=== PATIENT | female | born 1990 | race Caucasian/White ===

== ENCOUNTER 2017-10-15 13:18 | Inpatient (IN) | payer OTHER, MEDICAID ==
[2017-10-15] MEDS ORDERED: Ondansetron 4 MG/2 ML SDV IVPUSH PRN ×2 (14:57→16:46)
[2017-10-15] MEDS ORDERED: Nalbuphine 20 MG/1 ML Amp IVPUSH PRN (14:57)
[2017-10-15] MEDS ORDERED: Aluminum Hydroxide/Magnesium Hydroxide/Simethicone Susp 30 ML Cup PO PRN (14:57)
[2017-10-15] MEDS ORDERED: Oxytocin/Lactated Ringers 10 UNIT/1,000 ML BAG IV SCH (15:00)
[2017-10-15] MEDS ORDERED: Ampicillin 2 GM in Sodium Chloride 0.9% 100 ML IV ONE (15:30)
[2017-10-15] MEDS: Lactated Ringers 1,000 ML IV SCH ×3 (15:39→18:00)
[2017-10-15] MEDS ORDERED: diphenhydrAMINE 50 MG/ML SDV IVPUSH PRN (16:46)
[2017-10-15] MEDS ORDERED: fentaNYL 100 MCG/2 ML SDV EPIDUR PRN (16:46)
[2017-10-15] MEDS ORDERED: ePHEDrine 50 MG/ML SDV IVPUSH PRN (16:46)
[2017-10-15] MEDS ORDERED: Bupivacaine/fentaNYL/NS 100 ML Bag EPIDUR SCH (17:00)
--- NOTE | 2017-10-15 17:31 | PCM.PREANE ---
Preanesthetic Assessment - Procedure Proposed Procedure: MIRANDA - Anesthesia/Transfusion/Family Hx Anesthesia History: No Prior Anesthesia Family History of Anesthesia Reaction: No Transfusion History: No Prior Transfusion(s) Intubation History: Unknown - Review of Systems General: No Symptoms Pulmonary: No Symptoms Cardiovascular: No Symptoms Gastrointestinal: No Symptoms Neurological: No Symptoms Other: Reports: None - Physical Assessment NPO Status Date: 10/14/17 NPO Status Time: 15:00 O2 Sat by Pulse Oximetry: 97 Respiratory Rate: 17 Vital Signs: Last Vital Signs Temp 36.6 C 10/15/17 14:01 Pulse 79 10/15/17 14:01 Resp 17 10/15/17 14:01 BP 140/83 10/15/17 14:01 Pulse Ox 97 10/15/17 14:01 Height: 1.78 m Weight: 108.545 kg ASA Class: 2 Mental Status: Alert & Oriented x3 Airway Class: Mallampati = 1 Dentition: Reports: Normal Dentition Thyro-Mental Finger Breadths: 3 Mouth Opening Finger Breadths: 3 ROM/Head Extension: Full Lungs: Clear to Auscultation, Normal Respiratory Effort Cardiovascular: Regular Rate, Regular Rhythm - Lab Values: Laboratory Last Values WBC 10.56 K/mm3 (3.98-10.04) H 10/15/17 14:32 RBC 4.34 M/mm3 (3.98-5.22) 10/15/17 14:32 Hgb 12.4 gm/L (11.2-15.7) 10/15/17 14:32 Hct 36.5 % (34.1-44.9) 10/15/17 14:32 MCV 84.1 fl (79.4-94.8) 10/15/17 14:32 MCH 28.6 pg (25.6-32.2) 10/15/17 14:32 MCHC 34.0 g/dl (32.2-35.5) 10/15/17 14:32 RDW Std Deviation 40.8 fL (36.4-46.3) 10/15/17 14:32 Plt Count 218 K/mm3 (182-369) 10/15/17 14:32 MPV 11.8 fl (9.4-12.3) 10/15/17 14:32 Neut % (Auto) 75.1 % (34.0-71.1) H 10/15/17 14:32 Lymph % (Auto) 16.3 % (19.3-51.7) L 10/15/17 14:32 [place] % (Auto) 7.5 % (4.7-12.5) 10/15/17 14:32 Eos % (Auto) 0.3 (0.7-5.8) L 10/15/17 14:32 Baso % (Auto) 0.2 % (0.1-1.2) 10/15/17 14:32 Neut # (Auto) 7.94 K/mm3 (1.56-6.13) H 10/15/17 14:32 Lymph # (Auto) 1.72 K/mm3 (1.18-3.74) 10/15/17 14:32 [place] # (Auto) 0.79 K/mm3 (0.24-0.36) H 10/15/17 14:32 Eos # (Auto) 0.03 K/mm3 (0.04-0.36) L 10/15/17 14:32 Baso # (Auto) 0.02 K/mm3 (0.01-0.08) 10/15/17 14:32 Membrane Rupture Positive H 10/15/17 13:53 Blood Type O POSITIVE 10/15/17 14:32 Gel Antibody Screen Negative 10/15/17 14:32 - Allergies Allergies/Adverse Reactions: Allergies Allergy/AdvReac Type Severity Reaction Status Date / Time No Known Allergies Allergy Verified 10/15/17 14:56 - Blood Blood Available: No Product(s) Available: None - Anesthesia Plan Pre-Op Medication Ordered: None - Acknowledgements Anesthesia Type Planned: Epidural Pt an Appropriate Candidate for the Planned Anesthesia: Yes Alternatives and Risks of Anesthesia Discussed w Pt/Guardian: Yes Pt/Guardian Understands and Agrees with Anesthesia Plan: Yes PreAnesthesia Questionnaire CREATIVE LEAD History: Reports: Other (See Below) Other OB/BYN History: abnormal pap and colposcopy 2006 - Past Surgical History HEENT Surgical History: Reports: Oral Surgery Other HEENT Surgeries/Procedures: wisdom teeth 2007 - SUBSTANCE USE Smoking Status *Q: Never Smoker Recreational Drug Use History: No - HOME MEDS Home Medications: Home Meds Vit W-Ca,Fe,FA(<1 mg) [ Vitamins] 1 tab PO DAILY 10/15/17 [ History] - CURRENT (IN HOUSE) MEDS Current Meds: Current Medications Al Hydroxide/Mg Hydroxide (Mag-Al Plus) 30 ml PO Q8H PRN PRN Reason: Heartburn Diphenhydramine HCl (Benadryl) 25 mg IVPUSH Q6H PRN PRN Reason: Pruritis Ephedrine Sulfate (Ephedrine Sulfate) 5 mg IVPUSH ASDIRECTED PRN PRN Reason: Hypotension Fentanyl (Sublimaze) 100 mcg EPIDUR Q3H PRN PRN Reason: Pain Last Admin: 10/15/17 17:15 Dose: 100 mcg Fentanyl/Bupivacaine HCl (Fentanyl/Bupivacaine/Ns 2 Mcg-0.125% 100 Ml) 100 ml EPIDUR ASDIRECTED HARRIS Last Admin: 10/15/17 17:15 Dose: 100 ml Ampicillin Sodium 1 gm/ Sodium (Chloride) 100 mls @ 200 mls/hr IV Q4H HARRIS Lactated Ringer's (Ringers, Lactated) 1,000 mls @ 100 mls/hr IV ASDIRECTED HARRIS Last Admin: 10/15/17 15:39 Dose: 100 mls/hr Oxytocin/Lactated Ringer's (Pitocin In Lr 10 Units/1,000 Ml) 10 unit in 1,000 mls @ 12 mls/hr IV TITRATE HARRIS; 2 MUNITS/MIN PRN Reason: Protocol Oxytocin 20 unit/ Lactated (Ringer's) 1,002 mls @ 500 mls/hr IV ASDIRECTED [facility] Nalbuphine HCl (Nubain) 10 mg IVPUSH Q2H PRN PRN Reason: Pain (moderate 4-6) Ondansetron HCl (Zofran) 4 mg IVPUSH Q4H PRN PRN Reason: Nausea/Vomiting Ondansetron HCl (Zofran) 4 mg IVPUSH ONETIME PRN PRN Reason: Nausea/Vomiting Discontinued Medications Ampicillin Sodium 2 gm/ Sodium (Chloride) 100 mls @ 200 mls/hr IV ONETIME ONE Stop: 10/15/17 15:59 Last Admin: 10/15/17 15:34 Dose: 200 mls/hr
--- NOTE | 2017-10-15 18:43 | PCM.LDHP ---
L&D History of Present Illness - General Date of Service: 10/15/17 Admit Problem/Dx: Patient Status Order with Admit Dx/Problem 10/15/17 15:01 Patient Status [ADT] Routine Admission Diagnosis/Problem Admission Diagnosis/Problem Normal labor Source of Information: Patient History Limitations: Reports: No Limitations - History of Present Illness Introduction:: 27-year-old JL 10/15/17 estimated gestational age 40 weeks gestation. Presented to labor and delivery with contractions history of leaking of fluid since sometime this morning patient not sure when. Amniotomy performed just now cervix 5 cm, 100% effaced, soft, mid position Vertex -1-2 lightly meconium- stained and blood-tinged from bloody show. B strep positive patient has been started on antibiotics upon arrival to labor and delivery. Patient oh positive, antibody screen negative, hemoglobin hematocrit initially 13.2 38.4 platelets 290,000 rubella immune serology nonreactive hepatitis B surface antigen and HIV negative. Urine culture no growth after 2 days. GC and chlamydia probe negative. On 07/11/17 hemoglobin hematocrit 11.4 and 34.2 platelets 218,000 Timing/Duration: Reports: hour(s): Location, : Reports: Abdomen, Lower back Quality: Reports: Ache, Dull, Pressure Pain Score: 7 Improves with: Reports: None Worsens with: Reports: None Associated Symptoms: Reports: N - Related Data Allergies/Adverse Reactions: Allergies Allergy/AdvReac Type Severity Reaction Status Date / Time No Known Allergies Allergy Verified 10/15/17 14:56 Home Medications: Home Meds Vit W-Ca,Fe,FA(<1 mg) [ Vitamins] 1 tab PO DAILY 10/15/17 [ History] Past Medical History [employer] History: Reports: Other (See Below) Other OB/BYN History: abnormal pap and colposcopy 2006 - Past Surgical History HEENT Surgical History: Reports: Oral Surgery Other HEENT Surgeries/Procedures: wisdom teeth 2007 Social & Family History - Family History Family Medical History: Noncontributory - Tobacco Use Smoking Status *Q: Never Smoker - Caffeine Use Caffeine Use: Reports: Coffee - Recreational Drug Use Recreational Drug Use: No H&P Review of Systems - Review of Systems: Review Of Systems: See Below General: Reports: No Symptoms HEENT: Reports: No Symptoms Pulmonary: Reports: No Symptoms Cardiovascular: Reports: No Symptoms Gastrointestinal: Reports: No Symptoms Genitourinary: Reports: No Symptoms Musculoskeletal: Reports: No Symptoms Skin: Reports: No Symptoms Psychiatric: Reports: No Symptoms Neurological: Reports: No Symptoms Hematologic/Lymphatic: Reports: No Symptoms Immunologic: Reports: No Symptoms L&D Exam - Exam Exam: See Below - Vital Signs Vital Signs: Last Vital Signs Temp 97.9 F 10/15/17 14:01 Pulse 79 10/15/17 14:01 Resp 17 10/15/17 17:31 BP 140/83 10/15/17 14:01 Pulse Ox 97 10/15/17 17:31 Weight: 239 lb 4.8 oz - OB Specific Fundal Height In cm: 39 Contraction Duration (sec): 60 Contraction Frequency (min): 2 Contraction Intensity: Moderate to Strong Movement: Active Heart Tones: Present Heart Tones per Min: 135 Heart Rate (FHR) Variability: Moderate (6-25 bmp) Presentation: Vertex - Mccullough Score Mccullough Score Cervix Position: Midposition Mccullough Score Consistency: Soft Mccullough Score Effacement: >80% Mccullough Score Dilation: > 5 cm Mccullough Score 's Station: -1 ,0 Mccullough Score Total: 11 - Exam General: Alert, Oriented HEENT: Conjunctiva Clear, Mucosa Moist & [place], PERRLA Neck: Supple, Trachea Midline Lungs: Clear to Auscultation, Normal Respiratory Effort Cardiovascular: Regular Rate, Regular Rhythm GI/Abdominal Exam: Normal Bowel Sounds, Soft, Non-Tender Genitourinary: Normal external exam, Normal bimanual exam, Normal speculum exam Back Exam: Normal Inspection, Full Range of Motion Extremities: Normal Inspection, Normal Range of Motion, Non-Tender, No Pedal Edema, Normal Capillary Refill Skin: Warm, Dry, Intact Neurological: Reflexes Equal Bilateral Psychiatric: Alert, Normal Affect, Normal Mood - Patient Data Lab Results Last 24 hrs: Laboratory Results - last 24 hr 10/15/17 10/15/17 10/15/17 Range/Units 13:53 14:32 14:32 WBC 10.56 H (3.98-10.04) K/mm3 RBC 4.34 (3.98-5.22) M/mm3 Hgb 12.4 (11.2-15.7) gm/L Hct 36.5 (34.1-44.9) % MCV 84.1 (79.4-94.8) fl MCH 28.6 (25.6-32.2) pg MCHC 34.0 (32.2-35.5) g/dl RDW Std Deviation 40.8 (36.4-46.3) fL Plt Count 218 (182-369) K/mm3 MPV 11.8 (9.4-12.3) fl Neut % (Auto) 75.1 H (34.0-71.1) % Lymph % (Auto) 16.3 L (19.3-51.7) % [place] % (Auto) 7.5 (4.7-12.5) % Eos % (Auto) 0.3 L (0.7-5.8) Baso % (Auto) 0.2 (0.1-1.2) % Neut # (Auto) 7.94 H (1.56-6.13) K/mm3 Lymph # (Auto) 1.72 (1.18-3.74) K/mm3 [place] # (Auto) 0.79 H (0.24-0.36) K/mm3 Eos # (Auto) 0.03 L (0.04-0.36) K/mm3 Baso # (Auto) 0.02 (0.01-0.08) K/mm3 Membrane Rupture Positive H Blood Type O POSITIVE Gel Antibody Screen Negative Result Diagrams: 10/15/17 14:32 - Problem List (1) 40 weeks gestation of SNOMED Code(s): 10139378 ICD Code: Z3A.40 - 40 WEEKS GESTATION OF Status: Acute Current Visit: Yes (2) GBS carrier SNOMED Code(s): 9489391802655 ICD Code: Z22.330 - CARRIER OF GROUP B STREPTOCOCCUS Status: Acute Current Visit: Yes Problem List Initiated/Reviewed/Updated: No Orders Last 24hrs: Active Orders 24 hr Category Date Time Status Patient Status [ADT] Routine ADT 10/15/17 15:01 Active Activity as Tolerated [RC] PFP Care 10/15/17 14:58 Active Communication Order [RC] ASDIRECTED Care 10/15/17 14:58 Active Notify Provider [RC] PFP Care 10/15/17 14:58 Active Notify Provider [RC] PRN Care 10/15/17 14:58 Active Regular Diet [DIET] Diet 10/15/17 Breakfast Active Alum Hydrox/Mag Hydrox/Simeth [Mag-Al Plus] Med 10/15/17 14:57 Active 30 ml PO Q8H PRN Ampicillin 1 gm Med 10/15/17 19:30 Active Sodium Chloride 0.9% [Normal Saline] 100 ml IV Q4H Bupivacaine/fentaNYL/NS [fentaNYL/Bupivacaine/NS 2 MCG- Med 10/15/17 17:00 Active 0.125% 100 ML] 100 ml EPIDUR ASDIRECTED Lactated Ringers [Ringers, Lactated] 1,000 ml Med 10/15/17 15:00 Active IV ASDIRECTED Nalbuphine [Nubain] Med 10/15/17 14:57 Active 10 mg IVPUSH Q2H PRN Ondansetron [Zofran] Med 10/15/17 16:46 Active 4 mg IVPUSH ONETIME PRN Ondansetron [Zofran] Med 10/15/17 14:57 Active 4 mg IVPUSH Q4H PRN Oxytocin [Pitocin] 20 unit Med 10/15/17 15:15 Active Lactated Ringers [Ringers, Lactated] 1,000 ml IV ASDIRECTED Oxytocin/Lactated Ringers [Pitocin in LR 10 Units/1,000 Med 10/15/17 15:00 Active ML] 10 unit in 1,000 ml IV TITRATE diphenhydrAMINE [Benadryl] Med 10/15/17 16:46 Active 25 mg IVPUSH Q6H PRN ePHEDrine [ePHEDrine Sulfate] Med 10/15/17 16:46 Active 5 mg IVPUSH ASDIRECTED PRN fentaNYL [Sublimaze] Med 10/15/17 16:46 Active 100 mcg EPIDUR Q3H PRN Electronic Heart Tones Ext w TOCO [WOMSER] Oth 10/15/17 14:58 Ordered Routine Electronic Heart Tones Internal [WOMSER] Per Unit Oth 10/15/17 14:58 Ordered Routine Peripheral IV Insertion Adult [OM.PC] Routine Oth 10/15/17 14:58 Ordered Resuscitation Status Routine Resus Stat 10/15/17 14:57 Ordered Medication Orders Al Hydroxide/Mg Hydroxide (Mag-Al Plus) 30 ml PO Q8H PRN PRN Reason: Heartburn Diphenhydramine HCl (Benadryl) 25 mg IVPUSH Q6H PRN PRN Reason: Pruritis Ephedrine Sulfate (Ephedrine Sulfate) 5 mg IVPUSH ASDIRECTED PRN PRN Reason: Hypotension Fentanyl (Sublimaze) 100 mcg EPIDUR Q3H PRN PRN Reason: Pain Last Admin: 10/15/17 17:15 Dose: 100 mcg Fentanyl/Bupivacaine HCl (Fentanyl/Bupivacaine/Ns 2 Mcg-0.125% 100 Ml) 100 ml EPIDUR ASDIRECTED HARRIS Last Admin: 10/15/17 17:15 Dose: 100 ml Ampicillin Sodium 1 gm/ Sodium (Chloride) 100 mls @ 200 mls/hr IV Q4H HARRIS Lactated Ringer's (Ringers, Lactated) 1,000 mls @ 100 mls/hr IV ASDIRECTED HARRIS Last Admin: 10/15/17 18:00 Dose: 100 mls/hr Infusion: 10/15/17 18:00 Dose: 100 mls/hr Admin: 10/15/17 17:00 Dose: 100 mls/hr Infusion: 10/15/17 17:00 Dose: 100 mls/hr Admin: 10/15/17 15:39 Dose: 100 mls/hr Oxytocin/Lactated Ringer's (Pitocin In Lr 10 Units/1,000 Ml) 10 unit in 1,000 mls @ 12 mls/hr IV TITRATE HARRIS; 2 MUNITS/MIN PRN Reason: Protocol Oxytocin 20 unit/ Lactated (Ringer's) 1,002 mls @ 500 mls/hr IV ASDIRECTED [facility] Nalbuphine HCl (Nubain) 10 mg IVPUSH Q2H PRN PRN Reason: Pain (moderate 4-6) Ondansetron HCl (Zofran) 4 mg IVPUSH Q4H PRN PRN Reason: Nausea/Vomiting Ondansetron HCl (Zofran) 4 mg IVPUSH ONETIME PRN PRN Reason: Nausea/Vomiting Assessment/Plan Comment:: Plan delivery.
[2017-10-15] MEDS: Ampicillin 1 GM in Sodium Chloride 0.9% 100 ML IV SCH ×2 (19:25→23:34)
[2017-10-15] MEDS ORDERED: Oxytocin 10 Units/1 ML SDV ONE (22:18)
[2017-10-15] MEDS ORDERED: Bupivacaine 0.25% 10 ML SDV ONE (22:20)
[2017-10-16] MEDS ORDERED: Lidocaine 1% 50 ML MDV ONE (00:09)
--- NOTE | 2017-10-16 00:29 | PCM.DEL ---
L & D Note - General Info Date of Service: 10/16/17 Mother's Due Date: 10/15/17 - Delivery Note Labor: Spontaneous, Augmented by ARM (Amniotomy of for bag after arrival on labor and delivery previous spontaneous rupture membranes earlier in the day.) Delivery Outcome: Livebirth (Male liveborn at 0004 hours on Tuesday10/16/17 3840 g/8 pounds 7.5 ounces Apgars 8/9 LUIS nuchal cord 1) Delivery Method: Spontaneous Vaginal Delivery-Single Delivery Mode: Spontaneous Presentation: Right Occiput Anterior (LUIS) Nuchal Cord: Present (Times one reduced over shoulders), Reduced Prep: Povidone-Iodine (Betadine Anesthesia Type: Local, Epidural Anesthetic: Lidocaine (Xylocaine) 1% Plain Local Anesthetic Volume: 5cc Amniotic Fluid Description: Clear Episiotomy Type: None Laceration: 1st Degree ("V" shaped left side of the midline) Suture type: Other (Monocryl times one) Suture size: 3-0 Placenta: Intact, Spontaneous (0007 hours intact eccentric cord insertion discarded Matthew) Cord: 3 Vessels Estimated Blood Loss: 250 Resuscitation Needed: No [place]: Suctioned, Bulb Syringe, Cathether, Stimulated, Warmed, [place] Used, Warmer Used Provider: León Chicas Score 1 min: 8 Score 5 min: 9 - Patient Data Vitals - Most Recent: Last Vital Signs Temp 97.9 F 10/15/17 14:01 Pulse 79 10/15/17 14:01 Resp 17 10/15/17 17:31 BP 140/83 10/15/17 14:01 Pulse Ox 97 10/15/17 17:31 Weight - Most Recent: 239 lb 4.8 oz I&O - Last 24 Hours: Intake & Output 10/15/17 10/15/17 10/16/17 14:59 22:59 07:59 Intake Total 0 Balance 0 Lab Results Last 24 Hours: Laboratory Results - last 24 hr 10/15/17 10/15/17 10/15/17 Range/Units 13:53 14:32 14:32 WBC 10.56 H (3.98-10.04) K/mm3 RBC 4.34 (3.98-5.22) M/mm3 Hgb 12.4 (11.2-15.7) gm/L Hct 36.5 (34.1-44.9) % MCV 84.1 (79.4-94.8) fl MCH 28.6 (25.6-32.2) pg MCHC 34.0 (32.2-35.5) g/dl RDW Std Deviation 40.8 (36.4-46.3) fL Plt Count 218 (182-369) K/mm3 MPV 11.8 (9.4-12.3) fl Neut % (Auto) 75.1 H (34.0-71.1) % Lymph % (Auto) 16.3 L (19.3-51.7) % [place] % (Auto) 7.5 (4.7-12.5) % Eos % (Auto) 0.3 L (0.7-5.8) Baso % (Auto) 0.2 (0.1-1.2) % Neut # (Auto) 7.94 H (1.56-6.13) K/mm3 Lymph # (Auto) 1.72 (1.18-3.74) K/mm3 [place] # (Auto) 0.79 H (0.24-0.36) K/mm3 Eos # (Auto) 0.03 L (0.04-0.36) K/mm3 Baso # (Auto) 0.02 (0.01-0.08) K/mm3 Membrane Rupture Positive H Blood Type O POSITIVE Gel Antibody Screen Negative Med Orders - Current: Current Medications Al Hydroxide/Mg Hydroxide (Mag-Al Plus) 30 ml PO Q8H PRN PRN Reason: Heartburn Diphenhydramine HCl (Benadryl) 25 mg IVPUSH Q6H PRN PRN Reason: Pruritis Ephedrine Sulfate (Ephedrine Sulfate) 5 mg IVPUSH ASDIRECTED PRN PRN Reason: Hypotension Fentanyl (Sublimaze) 100 mcg EPIDUR Q3H PRN PRN Reason: Pain Last Admin: 10/15/17 17:15 Dose: 100 mcg Fentanyl/Bupivacaine HCl (Fentanyl/Bupivacaine/Ns 2 Mcg-0.125% 100 Ml) 100 ml EPIDUR ASDIRECTED HARRIS Last Admin: 10/15/17 17:15 Dose: 100 ml Ampicillin Sodium 1 gm/ Sodium (Chloride) 100 mls @ 200 mls/hr IV Q4H HARRIS Last Admin: 10/15/17 23:34 Dose: 200 mls/hr Lactated Ringer's (Ringers, Lactated) 1,000 mls @ 100 mls/hr IV ASDIRECTED HARRIS Last Admin: 10/15/17 18:00 Dose: 100 mls/hr Oxytocin/Lactated Ringer's (Pitocin In Lr 10 Units/1,000 Ml) 10 unit in 1,000 mls @ 12 mls/hr IV TITRATE HARRIS; 2 MUNITS/MIN PRN Reason: Protocol Oxytocin 20 unit/ Lactated (Ringer's) 1,002 mls @ 500 mls/hr IV ASDIRECTED [facility] Nalbuphine HCl (Nubain) 10 mg IVPUSH Q2H PRN PRN Reason: Pain (moderate 4-6) Ondansetron HCl (Zofran) 4 mg IVPUSH Q4H PRN PRN Reason: Nausea/Vomiting Ondansetron HCl (Zofran) 4 mg IVPUSH ONETIME PRN PRN Reason: Nausea/Vomiting Discontinued Medications Ampicillin Sodium 2 gm/ Sodium (Chloride) 100 mls @ 200 mls/hr IV ONETIME ONE Stop: 10/15/17 15:59 Last Admin: 10/15/17 15:34 Dose: 200 mls/hr Lidocaine HCl (Xylocaine 1%) Confirm Administered Dose 50 ml .ROUTE .STK-MED ONE Stop: 10/16/17 00:10 Oxytocin (Pitocin) Confirm Administered Dose 20 unit .ROUTE .STK-MED ONE Stop: 10/15/17 22:19 - Problem List & Annotations (1) 40 weeks gestation of SNOMED Code(s): 54026313 Code(s): Z3A.40 - 40 WEEKS GESTATION OF Status: Acute Current Visit: Yes (2) GBS carrier SNOMED Code(s): 9268660468185 Code(s): Z22.330 - CARRIER OF GROUP B STREPTOCOCCUS Status: Acute Current Visit: Yes (3) First degree laceration of perineum during delivery, SNOMED Code(s): 452570325 Code(s): O70.0 - FIRST DEGREE PERINEAL LACERATION DURING DELIVERY Status: Acute Current Visit: Yes (4) Nuchal cord, delivered, current hospitalization SNOMED Code(s): 522802719 Code(s): O69.81X0 - LABOR AND DEL COMP BY CORD AROUND NECK, W/O COMPRSN, UNSP Status: Acute Current Visit: Yes - Problem List Review Problem List Initiated/Reviewed/Updated: No - My Orders Last 24 Hours: My Active Orders 10/15/17 14:57 Alum Hydrox/Mag Hydrox/Simeth [Mag-Al Plus] 30 ml PO Q8H PRN Nalbuphine [Nubain] 10 mg IVPUSH Q2H PRN Ondansetron [Zofran] 4 mg IVPUSH Q4H PRN Resuscitation Status Routine 10/15/17 14:58 Activity as Tolerated [RC] PFP Communication Order [RC] ASDIRECTED Notify Provider [RC] PFP Notify Provider [RC] PRN Electronic Heart Tones Ext w TOCO [WOMSER] Routine Electronic Heart Tones Internal [WOMSER] Per Unit Routine Peripheral IV Insertion Adult [OM.PC] Routine 10/15/17 15:00 Lactated Ringers [Ringers, Lactated] 1,000 ml IV ASDIRECTED Oxytocin/Lactated Ringers [Pitocin in LR 10 Units/1,000 ML] 10 unit in 1,000 ml IV TITRATE 10/15/17 15:01 Patient Status [ADT] Routine 10/15/17 15:15 Oxytocin [Pitocin] 20 unit Lactated Ringers [Ringers, Lactated] 1,000 ml IV ASDIRECTED 10/15/17 19:30 Ampicillin 1 gm Sodium Chloride 0.9% [Normal Saline] 100 ml IV Q4H 10/15/17 Breakfast Regular Diet [DIET] - Plan Plan:: Plan delivery.
[2017-10-16] MEDS ORDERED: Docusate Sodium 100 MG Cap PO PRN (00:40)
[2017-10-16] MEDS ORDERED: Acetaminophen 325 MG Tab PO PRN (00:40)
[2017-10-16] MEDS ORDERED: Witch Hazel Medicated Pads 100/Jar TOP PRN (00:40)
[2017-10-16] MEDS ORDERED: Lanolin 100% Cream 7 GM Tube TOP PRN (00:40)
[2017-10-16] MEDS ORDERED: Acetaminophen/oxyCODONE 325-5 MG Tab PO PRN (00:40)
[2017-10-16] MEDS ORDERED: Benzocaine/Menthol 20%-0.5% Spray 56 GM Canister TOP PRN (00:40)
[2017-10-16] MEDS ORDERED: Lidocaine 1% 50 ML MDV INJECT SCH (01:00)
[2017-10-16] MEDS: Ibuprofen 600 MG Tab PO PRN ×3 (03:43→18:16)
[2017-10-16] MEDS: Prenatal Multivitamin with Calcium/Folic Acid/Iron Tab PO SCH (10:13)
--- NOTE | 2017-10-16 10:46 | PCM.SN ---
- Free Text/Narrative Note: exam Afebrile, chest clear, uterus at umbilicus -1. No heavy vaginal bleeding. No leg cramping.
--- NOTE | 2017-10-16 18:24 | PCM48HPAN ---
Post Anesthesia Note - EVALUATION WITHIN 48HRS OF ANESTHETIC Vital Signs in Normal Range: Yes Patient Participated in Evaluation: Yes Respiratory Function Stable: Yes Airway Patent: Yes Cardiovascular Function Stable: Yes Hydration Status Stable: Yes Pain Control Satisfactory: Yes Nausea and Vomiting Control Satisfactory: Yes Mental Status Recovered: Yes Pulse Rate: 80 Resp Rate: 15 Temperature: 36.0 C Blood Pressure: 131/82 - COMMENTS/OBSERVATIONS Free Text/Narrative:: Patient complained of right sided pain with contractions at about the T11-T12 during labor. Now the patient is doing well. No complaints of headache, residual numbness/tingling to LE, or back pain.
[2017-10-17] MEDS: Ibuprofen 600 MG Tab PO PRN (00:35)
--- NOTE | 2017-10-17 08:02 | PCM.DCSUM1 ---
Discharge Summary - Hospital Course Free Text/Narrative:: Uneventful hospital course patient will see Dr. Castro in 2 weeks call today before she leaves to make that appointment. [facility] LIVE L/D Delivery Note Patient Name: PRACHI FLETCHER Date of : 86 Patient Status: Inpatient Attending Provider: León Chicas Date: 10/16/17 00:23 Initialization Date: 10/16/17 00:23 L & D Note - General Info Date of Service: 10/16/17 Mother's Due Date: 10/15/17 - Delivery Note Labor: Spontaneous, Augmented by ARM (Amniotomy of for bag after arrival on labor and delivery previous spontaneous rupture membranes earlier in the day.) Delivery Outcome: Livebirth (Male liveborn at 0004 hours on Tuesday10/16/17 3840 g/8 pounds 7.5 ounces Apgars 8/9 LUIS nuchal cord 1) Infant Delivery Method: Spontaneous Vaginal Delivery-Single Delivery Mode: Spontaneous Presentation: Right Occiput Anterior (LUIS) Nuchal Cord: Present (Times one reduced over shoulders), Reduced Prep: Povidone-Iodine (Betadine Anesthesia Type: Local, Epidural Anesthetic: Lidocaine (Xylocaine) 1% Plain Local Anesthetic Volume: 5cc Amniotic Fluid Description: Clear Episiotomy Type: None Laceration: 1st Degree ("V" shaped left side of the midline) Suture type: Other (Monocryl times one) Suture size: 3-0 Placenta: Intact, Spontaneous (0007 hours intact eccentric cord insertion discarded Matthew) Cord: 3 Vessels Estimated Blood Loss: 250 Resuscitation Needed: No : Suctioned, Bulb Syringe, Cathether, Stimulated, Warmed, [place] Used, Warmer Used Provider: León Chicas Score 1 min: 8 Score 5 min: 9 - Patient Data Vitals - Most Recent: Last Vital Signs Temp 97.9 F 10/15/17 14:01 Pulse 79 10/15/17 14:01 Resp 17 10/15/17 17:31 BP 140/83 10/15/17 14:01 Pulse Ox 97 10/15/17 17:31 Weight - Most Recent: 239 lb 4.8 oz I&O - Last 24 Hours: Intake & Output 10/15/17 10/15/17 10/16/17 14:59 22:59 07:59 Intake Total 0 Balance 0 Lab Results Last 24 Hours: Laboratory Results - last 24 hr 10/15/17 10/15/17 10/15/17 Range/Units 13:53 14:32 14:32 WBC 10.56 H (3.98-10.04) K/mm3 RBC 4.34 (3.98-5.22) M/mm3 Hgb 12.4 (11.2-15.7) gm/L Hct 36.5 (34.1-44.9) % MCV 84.1 (79.4-94.8) fl MCH 28.6 (25.6-32.2) pg MCHC 34.0 (32.2-35.5) g/dl RDW Std Deviation 40.8 (36.4-46.3) fL Plt Count 218 (182-369) K/mm3 MPV 11.8 (9.4-12.3) fl Neut % (Auto) 75.1 H (34.0-71.1) % Lymph % (Auto) 16.3 L (19.3-51.7) % Hall % (Auto) 7.5 (4.7-12.5) % Eos % (Auto) 0.3 L (0.7-5.8) Baso % (Auto) 0.2 (0.1-1.2) % Neut # (Auto) 7.94 H (1.56-6.13) K/mm3 Lymph # (Auto) 1.72 (1.18-3.74) K/mm3 Hall # (Auto) 0.79 H (0.24-0.36) K/mm3 Eos # (Auto) 0.03 L (0.04-0.36) K/mm3 Baso # (Auto) 0.02 (0.01-0.08) K/mm3 Membrane Rupture Positive H Blood Type O POSITIVE Gel Antibody Screen Negative Med Orders - Current: Current Medications Al Hydroxide/Mg Hydroxide (Mag-Al Plus) 30 ml PO Q8H PRN PRN Reason: Heartburn Diphenhydramine HCl (Benadryl) 25 mg IVPUSH Q6H PRN PRN Reason: Pruritis Ephedrine Sulfate (Ephedrine Sulfate) 5 mg IVPUSH ASDIRECTED PRN PRN Reason: Hypotension Fentanyl (Sublimaze) 100 mcg EPIDUR Q3H PRN PRN Reason: Pain Last Admin: 10/15/17 17:15 Dose: 100 mcg Fentanyl/Bupivacaine HCl (Fentanyl/Bupivacaine/Ns 2 Mcg-0.125% 100 Ml) 100 ml EPIDUR ASDIRECTED [facility] Last Admin: 10/15/17 17:15 Dose: 100 ml Ampicillin Sodium 1 gm/ Sodium (Chloride) 100 mls @ 200 mls/hr IV Q4H [facility] Last Admin: 10/15/17 23:34 Dose: 200 mls/hr Lactated Ringer's (Ringers, Lactated) 1,000 mls @ 100 mls/hr IV ASDIRECTED [facility] Last Admin: 10/15/17 18:00 Dose: 100 mls/hr Oxytocin/Lactated Ringer's (Pitocin In Lr 10 Units/1,000 Ml) 10 unit in 1,000 mls @ 12 mls/hr IV TITRATE [facility]IS; 2 MUNITS/MIN PRN Reason: Protocol Oxytocin 20 unit/ Lactated (Ringer's) 1,002 mls @ 500 mls/hr IV ASDIRECTED [facility] Nalbuphine HCl (Nubain) 10 mg IVPUSH Q2H PRN PRN Reason: Pain (moderate 4-6) Ondansetron HCl (Zofran) 4 mg IVPUSH Q4H PRN PRN Reason: Nausea/Vomiting Ondansetron HCl (Zofran) 4 mg IVPUSH ONETIME PRN PRN Reason: Nausea/Vomiting Discontinued Medications Ampicillin Sodium 2 gm/ Sodium (Chloride) 100 mls @ 200 mls/hr IV ONETIME ONE Stop: 10/15/17 15:59 Last Admin: 10/15/17 15:34 Dose: 200 mls/hr Lidocaine HCl (Xylocaine 1%) Confirm Administered Dose 50 ml .ROUTE .STK-MED ONE Stop: 10/16/17 00:10 Oxytocin (Pitocin) Confirm Administered Dose 20 unit .ROUTE .STK-MED ONE Stop: 10/15/17 22:19 - Problem List & Annotations (1) 40 weeks gestation of SNOMED Code(s): 33038197 Code(s): Z3A.40 - 40 WEEKS GESTATION OF Status: Acute Current Visit: Yes (2) GBS carrier SNOMED Code(s): 6542051338929 Code(s): Z22.330 - CARRIER OF GROUP B STREPTOCOCCUS Status: Acute Current Visit: Yes (3) First degree laceration of perineum during delivery, SNOMED Code(s): 114503273 Code(s): O70.0 - FIRST DEGREE PERINEAL LACERATION DURING DELIVERY Status: Acute Current Visit: Yes (4) Nuchal cord, delivered, current hospitalization SNOMED Code(s): 446052036 Code(s): O69.81X0 - LABOR AND DEL COMP BY CORD AROUND NECK, W/O COMPRSN, UNSP Status: Acute Current Visit: Yes - Problem List Review Problem List Initiated/Reviewed/Updated: No - My Orders Last 24 Hours: My Active Orders 10/15/17 14:57 Alum Hydrox/Mag Hydrox/Simeth [Mag-Al Plus] 30 ml PO Q8H PRN Nalbuphine [Nubain] 10 mg IVPUSH Q2H PRN Ondansetron [Zofran] 4 mg IVPUSH Q4H PRN Resuscitation Status Routine 10/15/17 14:58 Activity as Tolerated [RC] PFP Communication Order [RC] ASDIRECTED Notify Provider [RC] PFP Notify Provider [RC] PRN Electronic Heart Tones Ext w TOCO [WOMSER] Routine Electronic Heart Tones Internal [WOMSER] Per Unit Routine Peripheral IV Insertion Adult [OM.PC] Routine 10/15/17 15:00 Lactated Ringers [Ringers, Lactated] 1,000 ml IV ASDIRECTED Oxytocin/Lactated Ringers [Pitocin in LR 10 Units/1,000 ML] 10 unit in 1,000 ml IV TITRATE 10/15/17 15:01 Patient Status [ADT] Routine 10/15/17 15:15 Oxytocin [Pitocin] 20 unit Lactated Ringers [Ringers, Lactated] 1,000 ml IV ASDIRECTED 10/15/17 19:30 Ampicillin 1 gm Sodium Chloride 0.9% [Normal Saline] 100 ml IV Q4H 10/15/17 Breakfast Regular Diet [DIET] - Plan Plan:: Plan delivery. HPI Initial Comments: Uneventful hospital course patient will see Dr. Castro in 2 weeks call today before she leaves to make that appointment. [facility] LIVE L/D Delivery Note Patient Name: PRACHI FLETCHER Date of : 86 Patient Status: Inpatient Attending Provider: León Chicas Date: 10/16/17 00:23 Initialization Date: 10/16/17 00:23 L & D Note - General Info Date of Service: 10/16/17 Mother's Due Date: 10/15/17 - Delivery Note Labor: Spontaneous, Augmented by ARM (Amniotomy of for bag after arrival on labor and delivery previous spontaneous rupture membranes earlier in the day.) Delivery Outcome: Livebirth (Male liveborn at 0004 hours on Tuesday10/16/17 3840 g/8 pounds 7.5 ounces Apgars 8/9 LUIS nuchal cord 1) Infant Delivery Method: Spontaneous Vaginal Delivery-Single Delivery Mode: Spontaneous Presentation: Right Occiput Anterior (LUIS) Nuchal Cord: Present (Times one reduced over shoulders), Reduced Prep: Povidone-Iodine (Betadine Anesthesia Type: Local, Epidural Anesthetic: Lidocaine (Xylocaine) 1% Plain Local Anesthetic Volume: 5cc Amniotic Fluid Description: Clear Episiotomy Type: None Laceration: 1st Degree ("V" shaped left side of the midline) Suture type: Other (Monocryl times one) Suture size: 3-0 Placenta: Intact, Spontaneous (0007 hours intact eccentric cord insertion discarded Matthew) Cord: 3 Vessels Estimated Blood Loss: 250 Resuscitation Needed: No [place]: Suctioned, Bulb Syringe, Cathether, Stimulated, Warmed, [place] Used, Warmer Used Provider: eLón Chicas Score 1 min: 8 Score 5 min: 9 - Patient Data Vitals - Most Recent: Last Vital Signs Temp 97.9 F 10/15/17 14:01 Pulse 79 10/15/17 14:01 Resp 17 10/15/17 17:31 BP 140/83 10/15/17 14:01 Pulse Ox 97 10/15/17 17:31 Weight - Most Recent: 239 lb 4.8 oz I&O - Last 24 Hours: Intake & Output 10/15/17 10/15/17 10/16/17 14:59 22:59 07:59 Intake Total 0 Balance 0 Lab Results Last 24 Hours: Laboratory Results - last 24 hr 10/15/17 10/15/17 10/15/17 Range/Units 13:53 14:32 14:32 WBC 10.56 H (3.98-10.04) K/mm3 RBC 4.34 (3.98-5.22) M/mm3 Hgb 12.4 (11.2-15.7) gm/L Hct 36.5 (34.1-44.9) % MCV 84.1 (79.4-94.8) fl MCH 28.6 (25.6-32.2) pg MCHC 34.0 (32.2-35.5) g/dl RDW Std Deviation 40.8 (36.4-46.3) fL Plt Count 218 (182-369) K/mm3 MPV 11.8 (9.4-12.3) fl Neut % (Auto) 75.1 H (34.0-71.1) % Lymph % (Auto) 16.3 L (19.3-51.7) % Hall % (Auto) 7.5 (4.7-12.5) % Eos % (Auto) 0.3 L (0.7-5.8) Baso % (Auto) 0.2 (0.1-1.2) % Neut # (Auto) 7.94 H (1.56-6.13) K/mm3 Lymph # (Auto) 1.72 (1.18-3.74) K/mm3 Hall # (Auto) 0.79 H (0.24-0.36) K/mm3 Eos # (Auto) 0.03 L (0.04-0.36) K/mm3 Baso # (Auto) 0.02 (0.01-0.08) K/mm3 Membrane Rupture Positive H Blood Type O POSITIVE Gel Antibody Screen Negative Med Orders - Current: Current Medications Al Hydroxide/Mg Hydroxide (Mag-Al Plus) 30 ml PO Q8H PRN PRN Reason: Heartburn Diphenhydramine HCl (Benadryl) 25 mg IVPUSH Q6H PRN PRN Reason: Pruritis Ephedrine Sulfate (Ephedrine Sulfate) 5 mg IVPUSH ASDIRECTED PRN PRN Reason: Hypotension Fentanyl (Sublimaze) 100 mcg EPIDUR Q3H PRN PRN Reason: Pain Last Admin: 10/15/17 17:15 Dose: 100 mcg Fentanyl/Bupivacaine HCl (Fentanyl/Bupivacaine/Ns 2 Mcg-0.125% 100 Ml) 100 ml EPIDUR ASDIRECTED [facility] Last Admin: 10/15/17 17:15 Dose: 100 ml Ampicillin Sodium 1 gm/ Sodium (Chloride) 100 mls @ 200 mls/hr IV Q4H [facility] Last Admin: 10/15/17 23:34 Dose: 200 mls/hr Lactated Ringer's (Ringers, Lactated) 1,000 mls @ 100 mls/hr IV ASDIRECTED [facility] Last Admin: 10/15/17 18:00 Dose: 100 mls/hr Oxytocin/Lactated Ringer's (Pitocin In Lr 10 Units/1,000 Ml) 10 unit in 1,000 mls @ 12 mls/hr IV TITRATE [facility]; 2 MUNITS/MIN PRN Reason: Protocol Oxytocin 20 unit/ Lactated (Ringer's) 1,002 mls @ 500 mls/hr IV ASDIRECTED [facility] Nalbuphine HCl (Nubain) 10 mg IVPUSH Q2H PRN PRN Reason: Pain (moderate 4-6) Ondansetron HCl (Zofran) 4 mg IVPUSH Q4H PRN PRN Reason: Nausea/Vomiting Ondansetron HCl (Zofran) 4 mg IVPUSH ONETIME PRN PRN Reason: Nausea/Vomiting Discontinued Medications Ampicillin Sodium 2 gm/ Sodium (Chloride) 100 mls @ 200 mls/hr IV ONETIME ONE Stop: 10/15/17 15:59 Last Admin: 10/15/17 15:34 Dose: 200 mls/hr Lidocaine HCl (Xylocaine 1%) Confirm Administered Dose 50 ml .ROUTE .STK-MED ONE Stop: 10/16/17 00:10 Oxytocin (Pitocin) Confirm Administered Dose 20 unit .ROUTE .STK-MED ONE Stop: 10/15/17 22:19 - Problem List & Annotations (1) 40 weeks gestation of SNOMED Code(s): 30079296 Code(s): Z3A.40 - 40 WEEKS GESTATION OF Status: Acute Current Visit: Yes (2) GBS carrier SNOMED Code(s): 2629025645477 Code(s): Z22.330 - CARRIER OF GROUP B STREPTOCOCCUS Status: Acute Current Visit: Yes (3) First degree laceration of perineum during delivery, SNOMED Code(s): 946068108 Code(s): O70.0 - FIRST DEGREE PERINEAL LACERATION DURING DELIVERY Status: Acute Current Visit: Yes (4) Nuchal cord, delivered, current hospitalization SNOMED Code(s): 054213742 Code(s): O69.81X0 - LABOR AND DEL COMP BY CORD AROUND NECK, W/O COMPRSN, UNSP Status: Acute Current Visit: Yes - Problem List Review Problem List Initiated/Reviewed/Updated: No - My Orders Last 24 Hours: My Active Orders 10/15/17 14:57 Alum Hydrox/Mag Hydrox/Simeth [Mag-Al Plus] 30 ml PO Q8H PRN Nalbuphine [Nubain] 10 mg IVPUSH Q2H PRN Ondansetron [Zofran] 4 mg IVPUSH Q4H PRN Resuscitation Status Routine 10/15/17 14:58 Activity as Tolerated [RC] PFP Communication Order [RC] ASDIRECTED Notify Provider [RC] PFP Notify Provider [RC] PRN Electronic Heart Tones Ext w TOCO [WOMSER] Routine Electronic Heart Tones Internal [WOMSER] Per Unit Routine Peripheral IV Insertion Adult [OM.PC] Routine 10/15/17 15:00 Lactated Ringers [Ringers, Lactated] 1,000 ml IV ASDIRECTED Oxytocin/Lactated Ringers [Pitocin in LR 10 Units/1,000 ML] 10 unit in 1,000 ml IV TITRATE 10/15/17 15:01 Patient Status [ADT] Routine 10/15/17 15:15 Oxytocin [Pitocin] 20 unit Lactated Ringers [Ringers, Lactated] 1,000 ml IV ASDIRECTED 10/15/17 19:30 Ampicillin 1 gm Sodium Chloride 0.9% [Normal Saline] 100 ml IV Q4H 10/15/17 Breakfast Regular Diet [DIET] - Plan Plan:: Plan delivery. Brief History: Uneventful hospital course patient will see Dr. Castro in 2 weeks call today before she leaves to make that appointment. [facility] * * LIVE . L/D Delivery Note. Patient Name: PRACHI FLETCHER IRENEMedical Record Number: [id number]. Date of : 86Patient Status: Inpatient. [facility]: [id number]. Date: 00:23Initialization Date: 10/16/17 00:23. L & D Note. - General Info. Date of Service: 10/16/17. Mother's Due Date: 10/15/17. - Delivery Note. Labor: Spontaneous, Augmented by ARM (Amniotomy of for bag after arrival on labor and delivery previous spontaneous rupture membranes earlier in the day.). Delivery Outcome: Livebirth (Male liveborn at 0004 hours on Tuesday10/16/17 3840 g/8 pounds 7.5 ounces Apgars 8/9 LUIS nuchal cord 1). Infant Delivery Method: Spontaneous Vaginal Delivery-Single. Delivery Mode: Spontaneous. Presentation: Right Occiput Anterior (LUIS). Nuchal Cord: Present (Times one reduced over shoulders), Reduced. Prep: Povidone-Iodine ( Betadine. Anesthesia Type: Local, Epidural. Anesthetic: Lidocaine (Xylocaine) 1% Plain. Local Anesthetic Volume: 5cc. Amniotic Fluid Description: Clear. Episiotomy Type: None. Laceration: 1st Degree ("V" shaped left side of the midline). Suture type: Other (Monocryl times one). Suture size: 3-0. Placenta : Intact, Spontaneous (0007 hours intact eccentric cord insertion discarded Matthew). Cord: 3 Vessels. Estimated Blood Loss: 250. Resuscitation Needed: No. [place]: Suctioned, Bulb Syringe, Cathether, Stimulated, Warmed, [place] Used, Warmer Used. Provider: León Chicas. Score 1 min: 8. Score 5 min: 9. - Patient Data. Vitals - Most Recent: Last Vital Signs. Temp 97.9 F 10/15/17 14:01. Pulse 79 10/15/17 14:01. Resp 17 17:31. BP 140/83 10/15/17 14:01. Pulse Ox 97 10/15/17 17:31. Weight - Most Recent: 239 lb 4.8 oz. I&O - Last 24 Hours: Intake & Output. 10/15/180205/1803. 14:5922:5907:59. Intake Total0. Balance0. Lab Results Last 24 Hours: Laboratory Results - last 24 hr. 10/15/180205/1803Range/ Units. 13:5314:3214:32. WBC 10.56 H (3.98-10.04) K/mm3. RBC 4.34 (3.98-5.22 ) M/mm3. Hgb 12.4 (11.2-15.7) gm/L. Hct 36.5 (34.1-44.9) %. MCV 84.1 (79.4 -94.8) fl. MCH 28.6 (25.6-32.2) pg. MCHC 34.0 (32.2-35.5) g/dl. RDW Std Deviation 40.8 (36.4-46.3) fL. Plt Count 218 (182-369) K/mm3. MPV 11.8 (9.4- 12.3) fl. Neut % (Auto) 75.1 H (34.0-71.1) %. Lymph % (Auto) 16.3 L (19.3- 51.7) %. Hall % (Auto) 7.5 (4.7-12.5) %. Eos % (Auto) 0.3 L (0.7-5.8). Baso % (Auto) 0.2 (0.1-1.2) %. Neut # (Auto) 7.94 H (1.56-6.13) K/mm3. Lymph # (Auto) 1.72 (1.18-3.74) K/mm3. Hall # (Auto) 0.79 H (0.24-0.36) K/ mm3. Eos # (Auto) 0.03 L (0.04-0.36) K/mm3. Baso # (Auto) 0.02 (0.01-0.08) K /mm3. Membrane Rupture Positive H. Blood Type O POSITIVE. Gel Antibody Screen Negative. Med Orders - Current: Current Medications. Al Hydroxide/Mg Hydroxide (Mag-Al Plus) 30 ml PO Q8H PRN. PRN Reason: Heartburn. Diphenhydramine HCl (Benadryl) 25 mg IVPUSH Q6H PRN. PRN Reason: Pruritis. Ephedrine Sulfate (Ephedrine Sulfate) 5 mg IVPUSH ASDIRECTED PRN. PRN Reason: Hypotension. Fentanyl (Sublimaze) 100 mcg EPIDUR Q3H PRN. PRN Reason: Pain. Last Admin: 10/15/17 17:15 Dose: 100 mcg. Fentanyl/Bupivacaine HCl (Fentanyl/ Bupivacaine/Ns 2 Mcg-0.125% 100 Ml) 100 ml EPIDUR ASDIRECTED [facility]. Last Admin: 10/15/17 17:15 Dose: 100 ml. Ampicillin Sodium 1 gm/ Sodium (Chloride) 100 mls @ 200 mls/hr IV Q4H [facility]. Last Admin: 10/15/17 23:34 Dose: 200 mls/hr. Lactated Ringer's (Ringers, Lactated) 1,000 mls @ 100 mls/hr IV ASDIRECTED [facility]. Last Admin: 10/15/17 18:00 Dose: 100 mls/hr. Oxytocin/Lactated Ringer's (Pitocin In Lr 10 Units/1,000 Ml) 10 unit in 1,000 mls @ 12 mls/hr IV TITRATE H[facility]IS; 2 MUNITS/MIN. PRN Reason: Protocol. Oxytocin 20 unit/ Lactated (Ringer's ) 1,002 mls @ 500 mls/hr IV ASDIRECTED [facility]. Nalbuphine HCl (Nubain) 10 mg IVPUSH Q2H PRN. PRN Reason: Pain (moderate 4-6). Ondansetron HCl (Zofran) 4 mg IVPUSH Q4H PRN. PRN Reason: Nausea/Vomiting. Ondansetron HCl (Zofran) 4 mg IVPUSH ONETIME PRN. PRN Reason: Nausea/Vomiting. Discontinued Medications. Ampicillin Sodium 2 gm/ Sodium (Chloride) 100 mls @ 200 mls/hr IV ONETIME ONE. Stop: 10/15/17 15:59. Last Admin: 10/15/17 15:34 Dose: 200 mls/hr. Lidocaine HCl (Xylocaine 1%) Confirm Administered Dose 50 ml .ROUTE .STK-MED ONE. Stop: 10/16/17 00:10. Oxytocin (Pitocin) Confirm Administered Dose 20 unit .ROUTE .STK-MED ONE. Stop: 10/15/17 22:19. - Problem List & Annotations. (1) 40 weeks gestation of . SNOMED Code(s): 75948153. Code(s): Z3A.40 - 40 WEEKS GESTATION OF Status: Acute Current Visit: Yes. (2) GBS carrier. SNOMED Code(s): 9049060632920. Code(s): Z22.330 - CARRIER OF GROUP B STREPTOCOCCUS Status: Acute Current Visit: Yes. (3) First degree laceration of perineum during delivery, . SNOMED Code(s): 857890923. Code(s): O70.0 - FIRST DEGREE PERINEAL LACERATION DURING DELIVERY Status: Acute Current Visit: Yes. (4) Nuchal cord, delivered, current hospitalization. SNOMED Code(s): 058464148. Code(s): O69.81X0 - LABOR AND DEL COMP BY CORD AROUND NECK, W/O COMPRSN, UNSP Status: Acute Current Visit: Yes. - Problem List Review. Problem List Initiated/Reviewed/Updated: No. - My Orders. Last 24 Hours: My Active Orders. 10/15/17 14:57. Alum Hydrox/Mag Hydrox/Simeth [Mag-Al Plus] 30 ml PO Q8H PRN. Nalbuphine [Nubain] 10 mg IVPUSH Q2H PRN. Ondansetron [Zofran] 4 mg IVPUSH Q4H PRN. Resuscitation Status Routine. 10/15/17 14:58. Activity as Tolerated [RC] PFP. Communication Order [RC] ASDIRECTED. Notify Provider [RC] PFP. Notify Provider [RC] PRN. Electronic Heart Tones Ext w TOCO [WOMSER] Routine. Electronic Heart Tones Internal [WOMSER] Per Unit Routine. Peripheral IV Insertion Adult [OM.PC] Routine. 10/15/17 15:00. Lactated Ringers [Ringers, Lactated] 1,000 ml IV ASDIRECTED. Oxytocin/Lactated Ringers [Pitocin in LR 10 Units/1,000 ML] 10 unit in 1,000 ml IV TITRATE. 10/15/17 15:01. Patient Status [ADT] Routine. 10/15/17 15:15. Oxytocin [Pitocin] 20 unit Lactated Ringers [Ringers, Lactated] 1,000 ml IV ASDIRECTED. 10/15/17 19:30. Ampicillin 1 gm Sodium Chloride 0.9% [Normal Saline] 100 ml IV Q4H. 10/15/17 Breakfast. Regular Diet [DIET]. - Plan. Plan:: Plan delivery. - Discharge Data Discharge Date: 10/17/17 Discharge Disposition: Home, Self-Care 01 Condition: Good - Discharge Diagnosis/Problem(s) (1) 40 weeks gestation of SNOMED Code(s): 26061980 ICD Code: Z3A.40 - 40 WEEKS GESTATION OF Status: Acute Current Visit: Yes (2) GBS carrier SNOMED Code(s): 1213217506254 ICD Code: Z22.330 - CARRIER OF GROUP B STREPTOCOCCUS Status: Acute Current Visit: Yes (3) First degree laceration of perineum during delivery, SNOMED Code(s): 458035886 ICD Code: O70.0 - FIRST DEGREE PERINEAL LACERATION DURING DELIVERY Status: Acute Current Visit: Yes (4) Nuchal cord, delivered, current hospitalization SNOMED Code(s): 087561308 ICD Code: O69.81X0 - LABOR AND DEL COMP BY CORD AROUND NECK, W/O COMPRSN, UNSP Status: Acute Current Visit: Yes - Patient Summary/Data Complications: None Consults: None Hospital Course: Uneventful - Patient Instructions Diet: Regular Diet as Tolerated Driving: Do Not Drive (48 hours) Showering/Bathing: May Shower Notify Provider of: Fever, Increased Pain, Swelling and Redness, Drainage, Nausea and/or Vomiting - Discharge Plan Home Medications: Home Meds Vit W-Ca,Fe,FA(<1 mg) [ Vitamins] 1 tab PO DAILY 10/15/17 [ History] Acetaminophen [Tylenol] 650 mg PO Q4H PRN tablet 10/17/17 [Rx] Benzocaine/Menthol [Dermoplast Pain Relief [place]] 1 spray TOP ASDIRECTED PRN canister 10/17/17 [Rx] Docusate Sodium [Colace] 100 mg PO BID PRN cap 10/17/17 [Rx] Ibuprofen [IJD: Ibuprofen] 600 mg PO Q4H PRN tablet 10/17/17 [Rx] Referrals: Fahad Castro MD [Primary Care Provider] - (2 weeks) - Discharge Summary/Plan Comment DC Time >30 min.: No - Patient Data Vitals - Most Recent: Last Vital Signs Temp 97.5 F 10/17/17 03:44 Pulse 79 10/17/17 03:44 Resp 14 10/17/17 03:44 BP 112/60 10/17/17 03:44 Pulse Ox 96 10/17/17 03:44 Weight - Most Recent: 239 lb 4.8 oz I&O - Last 24 hours: Intake & Output 10/16/17 10/17/17 10/17/17 22:59 06:59 14:59 Intake Total 480 Balance 480 Lab Results - Last 24 hrs: Laboratory Results - last 24 hr 10/17/17 Range/Units 07:20 WBC 9.90 (3.98-10.04) K/mm3 RBC 3.51 L (3.98-5.22) M/mm3 Hgb 10.0 L (11.2-15.7) gm/L Hct 30.3 L (34.1-44.9) % MCV 86.3 (79.4-94.8) fl MCH 28.5 (25.6-32.2) pg MCHC 33.0 (32.2-35.5) g/dl RDW Std Deviation 41.4 (36.4-46.3) fL Plt Count 179 L (182-369) K/mm3 MPV 11.2 (9.4-12.3) fl Neut % (Auto) 66.1 (34.0-71.1) % Lymph % (Auto) 22.5 (19.3-51.7) % Hall % (Auto) 9.0 (4.7-12.5) % Eos % (Auto) 1.3 (0.7-5.8) Baso % (Auto) 0.3 (0.1-1.2) % Neut # (Auto) 6.54 H (1.56-6.13) K/mm3 Lymph # (Auto) 2.23 (1.18-3.74) K/mm3 Hall # (Auto) 0.89 H (0.24-0.36) K/mm3 Eos # (Auto) 0.13 (0.04-0.36) K/mm3 Baso # (Auto) 0.03 (0.01-0.08) K/mm3 Med Orders - Current: Current Medications Acetaminophen (Tylenol) 650 mg PO Q4H PRN PRN Reason: mild pain or fever Benzocaine/Menthol (Dermoplast Pain Relief [place]) 0 gm TOP ASDIRECTED PRN PRN Reason: Perineal Comfort Measure Docusate Sodium (Colace) 100 mg PO BID PRN PRN Reason: Constipation Emollient Ointment (Lansinoh Hpa) 0 gm TOP ASDIRECTED PRN PRN Reason: Sore Nipples Last Admin: 10/17/17 00:36 Dose: 1 tube Ibuprofen (Motrin) 600 mg PO Q4H PRN PRN Reason: Mild pain or fever Last Admin: 10/17/17 00:35 Dose: 600 mg Lidocaine HCl (Xylocaine 1%) 50 ml INJECT ASDIRECTED [facility] Oxycodone/Acetaminophen (Percocet 325-5 Mg) 2 tab PO Q4H PRN PRN Reason: Pain (moderate 4-6) Prenat Multivit/[place]/Iron/Folic Ac ( Plus Iron) 1 each PO DAILY [facility] Last Admin: 10/16/17 10:13 Dose: 1 each [place] (Tucks) 1 pad TOP ASDIRECTED PRN PRN Reason: Hemorrhoid pain Last Admin: 10/16/17 18:19 Dose: 1 tub Discontinued Medications Al Hydroxide/Mg Hydroxide (Mag-Al Plus) 30 ml PO Q8H PRN PRN Reason: Heartburn Diphenhydramine HCl (Benadryl) 25 mg IVPUSH Q6H PRN PRN Reason: Pruritis Ephedrine Sulfate (Ephedrine Sulfate) 5 mg IVPUSH ASDIRECTED PRN PRN Reason: Hypotension Fentanyl (Sublimaze) 100 mcg EPIDUR Q3H PRN PRN Reason: Pain Last Admin: 10/15/17 17:15 Dose: 100 mcg Fentanyl/Bupivacaine HCl (Fentanyl/Bupivacaine/Ns 2 Mcg-0.125% 100 Ml) 100 ml EPIDUR ASDIRECTED [facility] Last Admin: 10/15/17 17:15 Dose: 100 ml Ampicillin Sodium 2 gm/ Sodium (Chloride) 100 mls @ 200 mls/hr IV ONETIME ONE Stop: 10/15/17 15:59 Last Admin: 10/15/17 15:34 Dose: 200 mls/hr Ampicillin Sodium 1 gm/ Sodium (Chloride) 100 mls @ 200 mls/hr IV Q4H [facility] Last Admin: 10/15/17 23:34 Dose: 200 mls/hr Lactated Ringer's (Ringers, Lactated) 1,000 mls @ 100 mls/hr IV ASDIRECTED [facility] Last Admin: 10/15/17 18:00 Dose: 100 mls/hr Oxytocin/Lactated Ringer's (Pitocin In Lr 10 Units/1,000 Ml) 10 unit in 1,000 mls @ 12 mls/hr IV TITRATE [place]; 2 MUNITS/MIN PRN Reason: Protocol Oxytocin 20 unit/ Lactated (Ringer's) 1,002 mls @ 500 mls/hr IV ASDIRECTED [facility] Lidocaine HCl (Xylocaine 1%) Confirm Administered Dose 50 ml .ROUTE .Lab21 ONE Stop: 10/16/17 00:10 Last Admin: 10/16/17 00:48 Dose: Not Given Nalbuphine HCl (Nubain) 10 mg IVPUSH Q2H PRN PRN Reason: Pain (moderate 4-6) Ondansetron HCl (Zofran) 4 mg IVPUSH Q4H PRN PRN Reason: Nausea/Vomiting Ondansetron HCl (Zofran) 4 mg IVPUSH ONETIME PRN PRN Reason: Nausea/Vomiting Oxytocin (Pitocin) Confirm Administered Dose 20 unit .ROUTE .Lab21 ONE Stop: 10/15/17 22:19 Last Admin: 10/16/17 00:48 Dose: Not Given *Q Meaningful Use (DIS) - VTE *Q VTE Criteria *Q: - Stroke *Q Stroke Criteria *Q: - AMI *Q AMI Criteria *Q:
[2017-10-17] MEDS: Prenatal Multivitamin with Calcium/Folic Acid/Iron Tab PO SCH (10:54)
== END 2017-10-17 09:40 | disposition home or self-care (01) | DRG 775 ==
LOC: JD.OBCHECK 13:18 → JD.OB 13:18 → JD.OBCHECK 15:01 → JD.OB 15:01 → OBSVTOIN 10-16 00:36 → JD.OB 10-16 00:36
PROVIDERS: ADMIT Obstetrics & Gynecology; ATTEND Obstetrics & Gynecology
PROC: 10E0XZZ Delivery of Products of Conception, External Approach (ICD-10-PCS; principal; 2017-10-16)
PROC: 10907ZC Drainage of Amniotic Fluid, Therapeutic from Products of Conception, Via Natural or Artificial Opening (ICD-10-PCS; 2017-10-16)
PROC: 0HQ9XZZ Repair Perineum Skin, External Approach (ICD-10-PCS; 2017-10-16)
PROC: 00HU33Z Insertion of Infusion Device into Spinal Canal, Percutaneous Approach (ICD-10-PCS; 2017-10-16)
PROC: 3E0R3BZ Introduction of Anesthetic Agent into Spinal Canal, Percutaneous Approach (ICD-10-PCS; 2017-10-16)
DX: O99.824 Streptococcus B carrier state complicating childbirth (principal); Z3A.40 40 weeks gestation of pregnancy; Z37.0 Single live birth; O77.0 Labor and delivery complicated by meconium in amniotic fluid; O69.81X0 Labor and delivery complicated by cord around neck, without compression, not applicable or unspecified; O70.0 First degree perineal laceration during delivery
CPT/HCPCS: 36415; 51702; 59300; 59409; 84112; 85025; 86850; 86900; 86901; A9270-GY; J0290; J3010; J7030; J7120

== ENCOUNTER 2022-09-21 02:19 | Inpatient (IN) | payer BC ==
[2022-09-21] MEDS ORDERED: Nalbuphine 10 MG/0.5 ML Syringe IVPUSH PRN (18:47)
[2022-09-21] MEDS ORDERED: Oxytocin/Lactated Ringers 10 UNIT/1,000 ML BAG IV SCH ×2 (19:00)
[2022-09-21] MEDS: Lactated Ringers 1,000 ML IV SCH (19:43)
[2022-09-21] MEDS ORDERED: ePHEDrine 50 MG/ML SDV IVPUSH PRN (22:40)
[2022-09-21] MEDS ORDERED: fentaNYL 100 MCG/2 ML SDV EPIDUR PRN (22:40)
[2022-09-21] MEDS ORDERED: diphenhydrAMINE 50 MG/ML SDV IVPUSH PRN (22:40)
[2022-09-21] MEDS ORDERED: Bupivacaine/fentaNYL/NS 100 ML Bag EPIDUR PRN (22:40)
[2022-09-22] MEDS: Lactated Ringers 1,000 ML IV SCH (01:22)
[2022-09-22] MEDS ORDERED: Witch Hazel Medicated Pads 40/Jar TOP PRN ×2 (02:40→03:49)
[2022-09-22] MEDS ORDERED: Benzocaine/Menthol 20%-0.5% Spray 78 GM Cannister TOP PRN ×2 (02:40→03:49)
[2022-09-22] MEDS ORDERED: Docusate Sodium 100 MG Cap PO PRN ×2 (02:40→03:49)
[2022-09-22] MEDS ORDERED: Acetaminophen 325 MG Tab PO PRN (02:40)
[2022-09-22] MEDS ORDERED: Ropivacaine 0.2% PF 2 MG/ML 20 ML SDV ONE (03:00)
[2022-09-22] MEDS ORDERED: Ibuprofen 600 MG Tab PO PRN (03:49)
[2022-09-22] MEDS: Ibuprofen 600 MG Tab PO PRN ×3 (06:02→17:58)
[2022-09-22] MEDS ORDERED: Prenatal Multivitamin with Calcium/Folic Acid/Iron Tab PO SCH (09:00)
[2022-09-22] MEDS: Prenatal Multivitamin with Calcium/Folic Acid/Iron Tab PO SCH (10:45)
[2022-09-22] MEDS: Acetaminophen 325 MG Tab PO PRN ×2 (15:16→20:50)
[2022-09-23] MEDS: Ibuprofen 600 MG Tab PO PRN (06:09)
[2022-09-23] MEDS: Prenatal Multivitamin with Calcium/Folic Acid/Iron Tab PO SCH (13:25)
== END 2022-09-23 10:56 | disposition home or self-care (01) | DRG 560 ==
LOC: JD.OB 02:19 → OBSVTOIN 09-22 02:19 → JD.OB 09-22 02:20
PROVIDERS: ADMIT Obstetrics & Gynecology; ATTEND Obstetrics & Gynecology
PROC: 10E0XZZ Delivery of Products of Conception, External Approach (ICD-10-PCS; principal; 2022-09-22)
PROC: 10907ZC Drainage of Amniotic Fluid, Therapeutic from Products of Conception, Via Natural or Artificial Opening (ICD-10-PCS; 2022-09-22)
PROC: 3E033VJ Introduction of Other Hormone into Peripheral Vein, Percutaneous Approach (ICD-10-PCS; 2022-09-22)
PROC: 3E0R3BZ Introduction of Anesthetic Agent into Spinal Canal, Percutaneous Approach (ICD-10-PCS; 2022-09-22)
PROC: 00HU33Z Insertion of Infusion Device into Spinal Canal, Percutaneous Approach (ICD-10-PCS; 2022-09-22)
DX: O69.81X0 Labor and delivery complicated by cord around neck, without compression, not applicable or unspecified (principal); Z3A.39 39 weeks gestation of pregnancy; Z37.0 Single live birth
CPT/HCPCS: 36415; 51702; 59025; 59409; 85025; 86592; 86850; 86900; 86901; A9270-GY; J2590; J2795; J3490; J7120

== ENCOUNTER 2025-02-19 06:39 | Inpatient (IN) | payer BC ==
[2025-02-19] MEDS ORDERED: Nalbuphine 10 MG/1 ML Vial IVPUSH PRN (07:46)
[2025-02-19] MEDS ORDERED: Ondansetron 4 MG/2 ML SDV IVPUSH PRN ×2 (07:46→09:55)
[2025-02-19] MEDS ORDERED: Oxytocin/0.9 % Sodium Chloride 30 UNIT/500 ML BAG IV SCH ×2 (08:00)
[2025-02-19 08:49] LABS: BASOPHILS ABSOLUTE AUTO 0.1 K/mm3 (0.0-0.2); BASOPHILS PERCENT AUTO 0.6 % (0.0-1.0); EOSINOPHILS ABSOLUTE AUTO 0.2 K/mm3 (0.0-0.4); EOSINOPHILS PERCENT AUTO 1.6 % (0.0-6.0); IMMATURE GRAN ABSOLUTE AUTO 0.10 K/mm3 (0.00-0.05); IMMATURE GRAN PERCENT AUTO 1.1 % (0.0-0.4); LYMPHOCYTES ABSOLUTE AUTO 1.7 K/mm3 (1.0-4.8); LYMPHOCYTES PERCENT AUTO 18.1 % (24.0-44.0); MEAN PLATELET VOLUME 11.2 fl (9.4-12.3); MONOCYTES ABSOLUTE AUTO 0.6 K/mm3 (0.0-0.8); MONOCYTES PERCENT AUTO 6.6 % (0.0-8.0); NEUTROPHILS ABSOLUTE AUTO 6.7 K/mm3 (1.8-7.7); NEUTROPHILS PERCENT AUTO 72.0 % (41.0-71.0); NRBC ABSOLUTE 0.00 (0.00-0.02); NRBC PERCENT 0.0 % (0.0-0.2); PLATELET COUNT,PLT 195 K/mm3 (150-400); RED BLOOD CELL COUNT 3.85 M/mm3 (4.10-5.30); WHITE BLOOD CELL COUNT,WBC 9.30 K/mm3 (3.9-11.3)
[2025-02-19 09:08] LABS: INR 0.99
[2025-02-19 09:09] LABS: PTT,PARTIAL THROMBOPLSTIN TIME 28.8 SECONDS (21.7-31.4)
[2025-02-19] MEDS: Lactated Ringers 1,000 ML IV SCH (09:50)
[2025-02-19] MEDS ORDERED: Sodium Chloride 0.9% 10 ML Syringe FLUSH PRN ×3 (09:55→12:34)
[2025-02-19] MEDS ORDERED: fentaNYL 100 MCG/2 ML SDV IVPUSH PRN (09:55)
[2025-02-19] MEDS ORDERED: diphenhydrAMINE 50 MG/ML SDV IVPUSH PRN (09:55)
[2025-02-19] MEDS ORDERED: Lactated Ringers 1,000 ML IV SCH (10:00)
[2025-02-19] MEDS: Citric Acid/Sodium Citrate Solution 30 ML Cup PO ONE (10:02)
[2025-02-19] MEDS ORDERED: ePHEDrine 50 MG/ML SDV ONE (10:04)
[2025-02-19] MEDS ORDERED: Morphine PF 10 MG/10 ML SDV ONE (10:04)
[2025-02-19] MEDS ORDERED: Oxytocin 10 Units/1 ML SDV ONE (10:29)
[2025-02-19] MEDS ORDERED: Ketorolac 30 MG/ML SDV ONE (10:50)
[2025-02-19] MEDS ORDERED: ePHEDrine 50 MG/ML SDV IVPUSH PRN (12:34)
[2025-02-19] MEDS ORDERED: Ondansetron 4 MG/2 ML SDV IV PRN (12:34)
[2025-02-19] MEDS ORDERED: Naloxone 0.4 MG/ML SDV IVPUSH PRN (12:34)
[2025-02-19 12:58] LABS: MEAN PLATELET VOLUME 11.6 fl (9.4-12.3); NRBC ABSOLUTE 0.00 (0.00-0.02); NRBC PERCENT 0.0 % (0.0-0.2); PLATELET COUNT,PLT 177 K/mm3 (150-400); RED BLOOD CELL COUNT 3.44 M/mm3 (4.10-5.30); WHITE BLOOD CELL COUNT,WBC 11.31 K/mm3 (3.9-11.3)
[2025-02-19 13:41] LABS: INR 1.03
[2025-02-19 13:42] LABS: PTT,PARTIAL THROMBOPLSTIN TIME 28.5 SECONDS (21.7-31.4)
[2025-02-19] MEDS: Ketorolac 30 MG/ML SDV IVPUSH SCH (16:19)
[2025-02-19] MEDS ORDERED: Sodium Chloride 0.9% 10 ML Syringe FLUSH SCH ×2 (21:00)
[2025-02-19] MEDS: diphenhydrAMINE 50 MG/ML SDV IVPUSH PRN (21:33)
[2025-02-20 05:53] LABS: MEAN PLATELET VOLUME 11.1 fl (9.4-12.3); NRBC ABSOLUTE 0.00 (0.00-0.02); NRBC PERCENT 0.0 % (0.0-0.2); PLATELET COUNT,PLT 157 K/mm3 (150-400); RED BLOOD CELL COUNT 2.95 M/mm3 (4.10-5.30); WHITE BLOOD CELL COUNT,WBC 8.59 K/mm3 (3.9-11.3)
== END 2025-02-20 12:59 | disposition home or self-care (01) | DRG 540 ==
LOC: JD.OBCHECK 06:39 → JD.OB 06:40 → UNDOADMOB 08:21 → JD.OB 08:21 → JD.OBCHECK 08:21 → JD.OB 10:06 → INTOOBSV 10:57 → OBSVTOIN 10:57 → JD.OB 10:58 → UNDODISIN 02-20 12:59
PROVIDERS: ADMIT Obstetrics & Gynecology; ATTEND Obstetrics & Gynecology
PROC: 10D00Z1 Extraction of Products of Conception, Low, Open Approach (ICD-10-PCS; principal; 2025-02-19 10:20)
DX: O99.344 Other mental disorders complicating childbirth (principal); Z3A.37 37 weeks gestation of pregnancy; Z37.0 Single live birth; D62 Acute posthemorrhagic anemia; O72.1 Other immediate postpartum hemorrhage; Z98.890 Other specified postprocedural states; Z79.899 Other long term (current) drug therapy
CPT/HCPCS: 01961; 36415; 59025; 84112; 85025; 85027; 85384; 85610; 85730; 86592; 86850; 86900; 86901; 94762; A9270-GY; J0456; J0690; J1200; J1885; J2274; J2590; J2765; J3490; J7050; J7120; J7121